=== PATIENT | female | born 1995 | race Caucasian/White ===

== ENCOUNTER 2023-01-06 14:39 | Emergency (ER) | payer OTHER ==
[~2023-01-06] VITALS: Ht 160 cm; Wt 103.0 kg
[2023-01-06] MEDS ORDERED: KETO200T15 PO (15:08)
[2023-01-06] MEDS ORDERED: KETO120S5 TP (15:08)
[2023-01-06 15:11] VITALS: BP 127/52
--- NOTE | 2023-01-06 15:13 | NUR ---
Patient discharged with v/s stable. Written and verbal after care instructions given and explained. Patient alert, oriented and verbalized understanding of instructions. Ambulatory with steady gait. All questions addressed prior to discharge. ID band removed. Patient advised to follow up with PMD. Rx of KETOCONAZOLE given. Patient educated on indication of medication including possible reaction and side effects. Opportunity to ask questions provided and answered.
--- NOTE | 2023-01-06 15:13 | NUR ---
DR RAMIREZ IN TRIAGE FOR EVAL
== END 2023-01-06 15:13 | disposition home or self-care (01) ==
LOC: MED 14:39
DX: B35.8 Other dermatophytoses (principal); Z79.899 Other long term (current) drug therapy
CPT/HCPCS: 99283

== ENCOUNTER 2024-05-25 21:44 | Emergency (ER) | payer SELFPAY ==
[~2024-05-25] VITALS: Ht 160 cm; Wt 80.7 kg
[~2024-05-25 21:44] MED LIST: KETO120S5 TP; KETO200T15 PO
[2024-05-25 21:51] VITALS: BP 118/65; PULSE 81; RESP 18; TEMP 98.3; O2SAT 97
[2024-05-25] MEDS: KETOROLAC 30 MG/ML VIAL IVP ONE (22:36)
[2024-05-25] MEDS: ONDANSETRON 4 MG/2 ML VIAL IVP ONE (22:37)
[2024-05-25] MEDS: NACL 0.9% 1,000 ML IV SCH (22:37)
[2024-05-25 22:44] LABS: APPEARANCE,URINE CLEAR (CLEAR); BILIRUBIN,URINE NEGATIVE (NEGATIVE); BLOOD, URINE NEGATIVE (NEGATIVE); COLOR,URINE YELLOW (YELLOW); LEUKOCYTE ESTERASE ,URINE NEGATIVE (NEGATIVE); NITRITE, URINE NEGATIVE (NEGATIVE); PROTEIN,URINE NEGATIVE (NEGATIVE); UGLUCOSE NEGATIVE (NEGATIVE); UROBILINOGEN,URINE 0.2 EU/dL (0.2 - 1)
[2024-05-25 22:49] LABS: BASOPHILS % (AUTO) 0.3 % (0.0-2.0); EOSINOPHILS # (AUTO) 0.4 K/uL (0-0.4); EOSINOPHILS % (AUTO) 4.2 % (0.0-4.0); HEMATOCRIT 36.6 % (36-48); HEMOGLOBIN 11.8 g/dL (12.0-16.0); LYMPHOCYTES # (AUTO) 3.7 K/uL (2.5-16.5); LYMPHOCYTES % (AUTO) 35.6 % (20.5-51.1); MEAN CORPUSCULAR HEMOGLOBIN 27 pg (27-31); MEAN CORPUSCULAR HGB CONC 32 g/dL (33-37); MEAN CORPUSCULAR VOLUME 84.5 fL (80-94); MONOCYTES # (AUTO) 0.7 K/uL (0.8-1.0); MONOCYTES % (AUTO) 6.4 % (1.7-9.3); NEUTROPHILS # (AUTO) 5.5 K/uL (1.8-7.7); NEUTROPHILS % (AUTO) 53.5 % (42.2-75.2); PLATELET COUNT (AUTO) 294 K/uL (140-450); RED BLOOD CELL COUNT(AUTO) 4.33 MIL/uL (4.20-5.40); WHITE BLOOD COUNT (AUTO) 10.3 K/uL (4.8-10.8)
[2024-05-25 23:21] LABS: ANION GAP 13.1 (8-16); CALCIUM 8.7 mg/dL (8.5-10.1); CARBON DIOXIDE 27.1 mmol/L (21-32); CREATININE 0.8 mg/dL (0.6-1.3); POTASSIUM 3.2 mmol/L (3.5-5.1)
[2024-05-25 23:31] LABS: BILIRUBIN,DIRECT 0.1 mg/dL (0.0-0.3); TOTAL BILIRUBIN 0.2 mg/dL (0.0-1.0); TOTAL PROTEIN, SERUM 6.8 g/dL (6.4-8.2)
[2024-05-25 23:49] LABS: THYROID STIMULATING HORMONE 1.05 uIU/mL (0.34-3.74)
[2024-05-26] MEDS: NACL 0.9% 1,000 ML IV ONE (00:06)
[2024-05-26] MEDS ORDERED: NAPR-337 PO (01:09)
[2024-05-26] MEDS ORDERED: ONDA-188 SL (01:09)
[2024-05-26 01:16] VITALS: BP 111/59; PULSE 75; RESP 15; TEMP 98; O2SAT 100
== END 2024-05-26 01:16 | disposition home or self-care (01) ==
LOC: MED 21:44
DX: R10.9 Unspecified abdominal pain (principal); M79.18 Myalgia, other site; R42 Dizziness and giddiness; Z79.899 Other long term (current) drug therapy
CPT/HCPCS: 36415; 80048; 80076; 81003; 81025; 83690; 84443; 85025; 85379; 96361; 96374; 96375; 99284; J1885; J2405; J7030

== ENCOUNTER 2024-06-05 01:05 | Emergency (ER) | payer SELFPAY ==
[~2024-06-05] VITALS: Ht 160 cm; Wt 83.0 kg
[~2024-06-05 01:05] MED LIST changes: +NAPR-337 PO; +ONDA-188 SL
[2024-06-05 01:17] VITALS: BP 105/87; RESP 16; TEMP 98.2; O2SAT 98
[2024-06-05 03:28] LABS: APPEARANCE,URINE CLEAR (CLEAR); BILIRUBIN,URINE NEGATIVE (NEGATIVE); BLOOD, URINE TRACE-I (NEGATIVE); COLOR,URINE YELLOW (YELLOW); LEUKOCYTE ESTERASE ,URINE TRACE (NEGATIVE); NITRITE, URINE NEGATIVE (NEGATIVE); PROTEIN,URINE NEGATIVE (NEGATIVE); UGLUCOSE NEGATIVE (NEGATIVE)
[2024-06-05 03:35] VITALS: BP 129/75; PULSE 70; RESP 18; TEMP 98.5; O2SAT 100
[2024-06-05 03:41] LABS: RBC,URINE 0-5 /HPF (0-5)
[2024-06-05 03:42] LABS: BACTERIA,URINE >30 (MANY) /HPF (None Seen); MUCUS,URINE 1+ /LPF (None Seen); SQUAMOUS EPITHELIAL CELL,UR 4-10 (MOD) /LPF (0-3 (FEW))
[2024-06-05 03:53] LABS: BASOPHILS % (AUTO) 0.4 % (0.0-2.0); EOSINOPHILS # (AUTO) 0.5 K/uL (0-0.4); EOSINOPHILS % (AUTO) 3.8 % (0.0-4.0); HEMATOCRIT 36.9 % (36-48); LYMPHOCYTES # (AUTO) 3.7 K/uL (2.5-16.5); LYMPHOCYTES % (AUTO) 29.4 % (20.5-51.1); MEAN CORPUSCULAR HEMOGLOBIN 27 pg (27-31); MEAN CORPUSCULAR HGB CONC 33 g/dL (33-37); MEAN CORPUSCULAR VOLUME 82.6 fL (80-94); MONOCYTES # (AUTO) 0.9 K/uL (0.8-1.0); MONOCYTES % (AUTO) 7.4 % (1.7-9.3); NEUTROPHILS # (AUTO) 7.4 K/uL (1.8-7.7); PLATELET COUNT (AUTO) 404 K/uL (140-450); RED BLOOD CELL COUNT(AUTO) 4.47 MIL/uL (4.20-5.40); RED CELL DISTRIBUTION WIDTH 13.6 % (11.6-13.7); WHITE BLOOD COUNT (AUTO) 12.6 K/uL (4.8-10.8)
[2024-06-05 04:08] LABS: ANION GAP 11.9 (8-16); CALCIUM 9.3 mg/dL (8.5-10.1); CARBON DIOXIDE 29.7 mmol/L (21-32); CREATININE 0.8 mg/dL (0.6-1.3); POTASSIUM 3.6 mmol/L (3.5-5.1)
[2024-06-05 04:12] LABS: ALBUMIN 4.1 g/dL (3.4-5.0); BILIRUBIN,DIRECT 0.1 mg/dL (0.0-0.3); TOTAL BILIRUBIN 0.4 mg/dL (0.0-1.0); TOTAL PROTEIN, SERUM 7.6 g/dL (6.4-8.2)
[2024-06-05] MEDS: NACL 0.9% 1,000 ML IV SCH (04:15)
[2024-06-05] MEDS: ONDANSETRON 4 MG/2 ML VIAL IVP ONE (04:16)
[2024-06-05] MEDS: KETOROLAC 30 MG/ML VIAL IVP ONE (04:18)
[2024-06-05] MEDS ORDERED: CEPH-588 PO (06:59)
== END 2024-06-05 07:02 | disposition home or self-care (01) ==
LOC: MED 01:05
DX: N39.0 Urinary tract infection, site not specified (principal); Z79.1 Long term (current) use of non-steroidal anti-inflammatories (NSAID); Z79.899 Other long term (current) drug therapy
CPT/HCPCS: 36415; 74176; 76856; 80048; 80076; 81001; 81025; 83690; 85025; 87086; 96361; 96374; 96375; 99285; J1885; J2405; J7030; Q0092